=== PATIENT | female | born 1970 | race Caucasian/White ===

== ENCOUNTER 2024-10-25 06:21 | Day surgery (SDC) | payer BC, SELFPAY | END 2024-10-25 10:09 | disposition home or self-care (01) | LOC: GI 06:21 | PROVIDERS: ATTENDING PHYSICIAN Internal Medicine | DX: Z12.11 Encounter for screening for malignant neoplasm of colon (principal); K63.5 Polyp of colon | CPT/HCPCS: 45385; 45380; 88305 ==

== ENCOUNTER 2024-12-01 06:23 | Day surgery (SDC) | payer BC, SELFPAY | END 2024-12-01 14:11 | disposition home or self-care (01) | LOC: GI 06:23 | PROVIDERS: ATTENDING PHYSICIAN Internal Medicine | DX: R93.3 Abnormal findings on diagnostic imaging of other parts of digestive tract (principal); K29.70 Gastritis, unspecified, without bleeding; K31.7 Polyp of stomach and duodenum | CPT/HCPCS: 43239; 88305; 88342 ==